=== PATIENT | male | born 1940 | race Caucasian/White ===

== ENCOUNTER → 2017-11-14 | Outpatient (CLI) | payer MEDICARE ==
--- NOTE | 2017-11-14 12:58 | KCIC ---
CT chest without contrast 11/14/2017 CLINICAL INDICATION: COPD with acute exacerbation. COMPARISON: CT chest 08/20/2012. TECHNIQUE: Multiple CT images of the chest were performed without contrast. *One or more of the following individualized dose reduction techniques were utilized for this examination: 1. Automated exposure control. 2. Adjustment of the mA and/or kV according to patient size. 3. Use of iterative reconstruction technique. FINDINGS: Heart size is normal without significant pericardial effusion. Coronary artery calcifications are noted. Prior endovascular repair of the aortic valve. Thoracic aorta is normal in caliber with mild scattered calcified atheromatous disease. No axillary, mediastinal or obvious hilar lymphadenopathy, though evaluation is somewhat limited due to lack of intravenous contrast. There are calcified mediastinal and hilar granulomas. 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 The central airways are patent. No pleural effusion or pneumothorax. There is mosaic attenuation throughout the lungs. There are 2 areas of subpleural groundglass opacity with thick peripheral surrounding consolidation in the right middle lobe measuring 3.5 x 2.7 cm series 3/image 105 and 1.7 x 1.0 cm series 2/image 131. There are anterior flowing osteophytes throughout the thoracic spine compatible with DISH. There are no destructive osseous lesions. Limited images of the upper abdomen: Grossly unremarkable apart from severe fatty atrophy of the pancreas. IMPRESSION: 1. Two areas of right middle lobe subpleural consolidation with central groundglass opacity. Differential considerations include cryptogenic organizing pneumonia, infectious etiologies including fungal, granulomatosis with polyangiitis, and possibly pulmonary infarction from an occult pulmonary embolism. Malignancy cannot be definitively excluded. Follow-up CT chest is recommended. 2. Mosaic attenuation, most commonly seen with small airways disease. 3. Coronary artery calcifications. Electronically signed by: Lewis Muse MD (11/14/2017 12:54 PM) [id number]
== END | disposition home or self-care (01) ==
LOC: KCIC CT 11:36
PROVIDERS: ATTEND Family Medicine
DX: J44.1 Chronic obstructive pulmonary disease with (acute) exacerbation (principal); I25.10 Atherosclerotic heart disease of native coronary artery without angina pectoris; J84.116 Cryptogenic organizing pneumonia; L92.8 Other granulomatous disorders of the skin and subcutaneous tissue
CPT/HCPCS: 71250

== ENCOUNTER → 2018-01-22 | Outpatient (CLI) | payer MEDICARE, OTHER | END | disposition home or self-care (01) | LOC: KCIC CT 09:56 | DX: J18.1 Lobar pneumonia, unspecified organism (principal); R91.1 Solitary pulmonary nodule | CPT/HCPCS: 71250 ==

== ENCOUNTER 2018-04-01 23:57 | Inpatient (IN) | payer MEDICARE, OTHER ==
[2018-04-02] MEDS: IPRATRPIUM/ALBUTEROL 0.5/2.5MG 3 ML NEBU. NEB ×8 (00:18→19:33)
[2018-04-02 00:32] LABS: BASE EXCESS ABG 4 mmol/L (-3-3); HCO3 ABG 29 mmol/L (21-28); PCO2 ABG 42 mmHg (35-46); PH ABG 7.45 (7.35-7.45); PO2 ABG 61 mmHg (65-108); SAT O2 ABG 92 % (92-99)
[2018-04-02 00:41] LABS: BASO # 0.1 x10^3/uL (0.0-0.2); BASO % 1 % (0-3); EOS # 0.1 x10^3/uL (0.0-0.7); EOS % 1 % (0-3); HEMATOCRIT 44.6 % (39.0-53.0); HEMOGLOBIN 15.2 g/dL (13.0-17.5); LYMPH # 0.7 x10^3/uL (1.0-4.8); LYMPH % 4 % (24-48); MEAN CORPUSCULAR HEMOGLOBIN 30 pg (25-35); MEAN CORPUSCULAR HGB CONC 34 g/dL (31-37); MEAN CORPUSCULAR VOLUME 88 fL (79-100); MONO # 0.8 x10^3/uL (0.0-1.1); MONO % 5 % (0-9); NEUT # 14.3 x10^3uL (1.8-7.7); NEUT % 90 % (31-73); PLATELET COUNT 149 x10^3/uL (140-400); RED BLOOD COUNT 5.06 x10^6/uL (4.30-5.70); RED CELL DISTRIBUTION WIDTH 13.5 % (11.5-14.5)
[2018-04-02 00:43] LABS: ADD MAN DIFF? YES
[2018-04-02 00:56] LABS: INR 1.1 (0.8-1.1); PROTHROMBIN TIME PATIENT 13.9 SEC (11.7-14.0)
[2018-04-02 00:57] LABS: ETHANOL < 10 mg/dL (0-10)
[2018-04-02 00:58] LABS: ANION GAP 11 (6-14); BLOOD UREA NITROGEN 37 mg/dL (8-26); BUN/CREATININE RATIO 19 (6-20); CALCIUM 8.5 mg/dL (8.5-10.1); CARBON DIOXIDE 28 mmol/L (21-32); CHLORIDE 99 mmol/L (98-107); GFR 32.6; GLUCOSE 253 mg/dL (70-99); POTASSIUM 3.8 mmol/L (3.5-5.1); SODIUM 138 mmol/L (136-145)
[2018-04-02 01:05] LABS: LACTIC ACID 3.3 mmol/L (0.4-2.0)
[2018-04-02 01:06] LABS: TROPONINI 0.023 ng/mL (0.000-0.055)
[2018-04-02 01:08] LABS: NT-PRO BNP 272 pg/mL (0-449)
[2018-04-02 01:11] LABS: ALBUMIN/GLOBULIN RATIO 0.6 (1.0-1.7); ALK PHOS 69 U/L (46-116); ALT (SGPT) 14 U/L (16-63); AST (SGOT) 17 U/L (15-37); TOTAL BILIRUBIN 0.6 mg/dL (0.2-1.0); TOTAL PROTEIN 7.8 g/dL (6.4-8.2)
[2018-04-02 01:21] LABS: % BANDS 4 % (0-9); % EOS 1 % (0-5); % LYMPHS 7 % (24-48); % MONOS 4 % (0-10); % SEGS 84 % (35-66); PLT ESTIMATE ADEQUATE (ADEQUATE)
[2018-04-02 01:40] LABS: PROCALCITONIN < 0.10 ng/mL (0.00-0.10)
[2018-04-02 02:18] LABS: BILIRUBIN,URINE NEGATIVE (NEG); CLARITY,URINE CLEAR; COLOR,URINE YELLOW; GLUCOSE,URINE 100 mg/dL (NEG); NITRITE,URINE NEGATIVE (NEG); PH,URINE 5.5; PROTEIN,URINE NEGATIVE (NEG-TRACE)
[2018-04-02 02:24] LABS: BACTERIA,URINE 0 /HPF (0-FEW); RBC,URINE 0 /HPF (0-2); SQUAMOUS EPITHELIAL CELL,UR FEW /LPF; WBC,URINE RARE /HPF (0-4)
[2018-04-02] MEDS: IV NORMAL SALINE 1000ML BAG 1,000 ML IV ×6 (02:45→22:31)
[2018-04-02 07:32] LABS: LACTIC ACID 2.9 mmol/L (0.4-2.0)
[2018-04-02 08:45] LABS: BASE EXCESS COOX 4 mmol/L (-3-3); HCO3 COOX 29 mmol/L (21-28); METHEMOGLOBIN 0.2 % (0.0-1.9); OXYHEMOGLOBIN 95.3 %; PCO2 COOX 44 mmHg (35-46); PH COOX 7.44 (7.35-7.45); PO2 COOX 88 mmHg (65-108); SAT O2 COOX 97 % (92-99); TOTAL HEMOGLOBIN 14.4 g/dL
[2018-04-02 08:48] LABS: FIO2 COOX 40
[2018-04-02] MEDS ORDERED: ONDANSETRON PF 4 MG/2 ML VIAL. IV (10:30)
[2018-04-02] MEDS ORDERED: hydrALAZINE 20 MG/ML VIAL. IVP (10:30)
[2018-04-02] MEDS ORDERED: ACETAMINOPHEN 325 MG TABLET. PO (10:30)
[2018-04-02] MEDS: AZITHROMYCIN 500 MG in IV NORMAL SALINE 250ML 250 ML IV (12:28)
[2018-04-02] MEDS: cefTRIAXone IV Push 1 GM VIAL. IVP (12:29)
[2018-04-02] MEDS: LACTOBACILLUS RHAMNOSUS GG 1 CAPSULE. PO ×2 (12:29→21:36)
[2018-04-02 14:20] LABS: MRSA BY PCR Negative (Negative)
[2018-04-02 20:52] LABS: POC GLUCOSE 206 mg/dL (70-99)
[2018-04-02] MEDS: HEPARIN PF for SUB-Q USE 5,000 UNIT/0.5 ML VIAL. SQ (21:40)
[2018-04-02 22:50] LABS: POC GLUCOSE 197 mg/dL (70-99)
[2018-04-03] MEDS: traMADol 50 MG TABLET PO ×2 (01:31→22:16)
[2018-04-03 05:13] LABS: ADD MAN DIFF? NO
[2018-04-03 05:26] LABS: BASO # 0.1 x10^3/uL (0.0-0.2); BASO % 1 % (0-3); EOS # 0.1 x10^3/uL (0.0-0.7); EOS % 1 % (0-3); HEMATOCRIT 41.8 % (39.0-53.0); HEMOGLOBIN 14.3 g/dL (13.0-17.5); LYMPH # 1.9 x10^3/uL (1.0-4.8); LYMPH % 9 % (24-48); MEAN CORPUSCULAR HEMOGLOBIN 30 pg (25-35); MEAN CORPUSCULAR HGB CONC 34 g/dL (31-37); MEAN CORPUSCULAR VOLUME 88 fL (79-100); MONO # 1.2 x10^3/uL (0.0-1.1); MONO % 6 % (0-9); NEUT # 17.9 x10^3uL (1.8-7.7); NEUT % 85 % (31-73); PLATELET COUNT 105 x10^3/uL (140-400); RED BLOOD COUNT 4.76 x10^6/uL (4.30-5.70); RED CELL DISTRIBUTION WIDTH 13.8 % (11.5-14.5); WHITE BLOOD COUNT 21.2 x10^3/uL (4.0-11.0)
[2018-04-03] MEDS: HEPARIN PF for SUB-Q USE 5,000 UNIT/0.5 ML VIAL. SQ ×3 (05:54→21:55)
[2018-04-03 06:01] LABS: ANION GAP 10 (6-14); BLOOD UREA NITROGEN 28 mg/dL (8-26); CALCIUM 8.5 mg/dL (8.5-10.1); CARBON DIOXIDE 28 mmol/L (21-32); CHLORIDE 102 mmol/L (98-107); CREATININE 1.4 mg/dL (0.7-1.3); GFR 49.3; GLUCOSE 154 mg/dL (70-99); POTASSIUM 3.4 mmol/L (3.5-5.1); SODIUM 140 mmol/L (136-145)
[2018-04-03] MEDS: IPRATRPIUM/ALBUTEROL 0.5/2.5MG 3 ML NEBU. NEB ×4 (07:48→19:09)
[2018-04-03] MEDS: LACTOBACILLUS RHAMNOSUS GG 1 CAPSULE. PO ×2 (09:21→21:54)
[2018-04-03] MEDS: MORPHINE SULFATE 4 MG/ML DISP.SYRIN. IV (10:15)
[2018-04-03] MEDS: AZITHROMYCIN 500 MG in IV NORMAL SALINE 250ML 250 ML IV (11:00)
[2018-04-03 12:10] LABS: MAGNESIUM 2.2 mg/dL (1.8-2.4)
[2018-04-03] MEDS: cefTRIAXone IV Push 1 GM VIAL. IVP (12:19)
[2018-04-03 12:20] LABS: THYROID STIM HORMONE (TSH) 2.019 uIU/mL (0.358-3.74)
[2018-04-03] MEDS: AZITHROMYCIN 500 MG in IV DEXTROSE 5 %-0.2 % NACL 250 ML IV (12:20)
[2018-04-03] MEDS ORDERED: hydrALAZINE 20 MG/ML VIAL. IVP (14:15)
[2018-04-03] MEDS: METOPROLOL TART IMMED RELEASE 25 MG TABLET. PO ×2 (15:49→21:00)
[2018-04-03] MEDS: ASPIRIN ENTERIC COATED 81 MG TABLET.DR. PO (15:49)
[2018-04-03] MEDS: POTASSIUM CHLORIDE 20 MEQ TABLET.ER. PO (15:49)
[2018-04-03] MEDS: amLODIPine BESYLATE 10 MG TABLET PO (15:50)
[2018-04-03 18:19] LABS: POC GLUCOSE 191 mg/dL (70-99)
[2018-04-04 04:45] LABS: POC GLUCOSE 212 mg/dL (70-99)
[2018-04-04 05:06] LABS: ADD MAN DIFF? NO
[2018-04-04 05:19] LABS: BASO % 0 % (0-3); EOS % 0 % (0-3); HEMATOCRIT 40.3 % (39.0-53.0); HEMOGLOBIN 13.6 g/dL (13.0-17.5); LYMPH # 1.4 x10^3/uL (1.0-4.8); LYMPH % 11 % (24-48); MEAN CORPUSCULAR HEMOGLOBIN 30 pg (25-35); MEAN CORPUSCULAR HGB CONC 34 g/dL (31-37); MEAN CORPUSCULAR VOLUME 88 fL (79-100); MONO # 0.8 x10^3/uL (0.0-1.1); MONO % 6 % (0-9); NEUT # 10.4 x10^3uL (1.8-7.7); NEUT % 82 % (31-73); PLATELET COUNT 116 x10^3/uL (140-400); RED BLOOD COUNT 4.59 x10^6/uL (4.30-5.70); RED CELL DISTRIBUTION WIDTH 13.6 % (11.5-14.5); WHITE BLOOD COUNT 12.7 x10^3/uL (4.0-11.0)
[2018-04-04] MEDS: HEPARIN PF for SUB-Q USE 5,000 UNIT/0.5 ML VIAL. SQ ×3 (05:39→20:41)
[2018-04-04 05:46] LABS: ANION GAP 8 (6-14); BLOOD UREA NITROGEN 21 mg/dL (8-26); CALCIUM 8.5 mg/dL (8.5-10.1); CARBON DIOXIDE 29 mmol/L (21-32); CHLORIDE 102 mmol/L (98-107); CREATININE 1.2 mg/dL (0.7-1.3); GFR 58.9; GLUCOSE 136 mg/dL (70-99); POTASSIUM 3.6 mmol/L (3.5-5.1); SODIUM 139 mmol/L (136-145)
[2018-04-04] MEDS: IPRATRPIUM/ALBUTEROL 0.5/2.5MG 3 ML NEBU. NEB ×4 (07:05→19:30)
[2018-04-04 08:03] LABS: POC GLUCOSE 150 mg/dL (70-99)
[2018-04-04] MEDS: LACTOBACILLUS RHAMNOSUS GG 1 CAPSULE. PO ×2 (08:14→20:21)
[2018-04-04] MEDS: DOCUSATE SODIUM 100 MG CAPSULE. PO (08:14)
[2018-04-04] MEDS: METOPROLOL TART IMMED RELEASE 25 MG TABLET. PO ×2 (08:15→20:22)
[2018-04-04] MEDS: traMADol 50 MG TABLET PO ×2 (08:15→20:41)
[2018-04-04] MEDS: ASPIRIN ENTERIC COATED 81 MG TABLET.DR. PO (08:15)
[2018-04-04] MEDS: amLODIPine BESYLATE 10 MG TABLET PO (08:15)
[2018-04-04] MEDS: cefTRIAXone IV Push 1 GM VIAL. IVP (11:44)
[2018-04-04 11:52] LABS: POC GLUCOSE 153 mg/dL (70-99)
[2018-04-04 16:32] LABS: POC GLUCOSE 156 mg/dL (70-99)
[2018-04-04] MEDS: ALBUTEROL SULFATE 2.5 MG/3 ML NEBU. NEB (18:00)
[2018-04-04 21:11] LABS: POC GLUCOSE 148 mg/dL (70-99)
[2018-04-04] MEDS: APIXABAN 5 MG TABLET. PO ×2 (22:41→22:43)
[2018-04-04 23:15] LABS: LEGIONELLA AG UR Negative (Negative)
[2018-04-05] MEDS: ANTI-COAG MONITOR BY PHARMACY. MC (02:39)
[2018-04-05] MEDS: ALBUTEROL SULFATE 2.5 MG/3 ML NEBU. NEB (02:56)
[2018-04-05] MEDS: traMADol 50 MG TABLET PO (06:00)
[2018-04-05] MEDS: IPRATRPIUM/ALBUTEROL 0.5/2.5MG 3 ML NEBU. NEB ×4 (06:59→19:54)
[2018-04-05 08:13] LABS: POC GLUCOSE 133 mg/dL (70-99)
[2018-04-05] MEDS: LACTOBACILLUS RHAMNOSUS GG 1 CAPSULE. PO ×2 (08:46→20:53)
[2018-04-05] MEDS: APIXABAN 5 MG TABLET. PO ×2 (08:47→20:52)
[2018-04-05] MEDS: METOPROLOL TART IMMED RELEASE 25 MG TABLET. PO ×2 (08:47→20:55)
[2018-04-05] MEDS: amLODIPine BESYLATE 10 MG TABLET PO (08:47)
[2018-04-05] MEDS: ASPIRIN ENTERIC COATED 81 MG TABLET.DR. PO (08:47)
[2018-04-05] MEDS ORDERED: PROMETH/CODEINE 6.25/10MG 5 ML SYRUP. PO (09:30)
[2018-04-05 09:36] LABS: ADD MAN DIFF? NO
[2018-04-05 09:48] LABS: BASO % 0 % (0-3); EOS # 0.1 x10^3/uL (0.0-0.7); EOS % 1 % (0-3); HEMOGLOBIN 14.2 g/dL (13.0-17.5); LYMPH # 1.3 x10^3/uL (1.0-4.8); LYMPH % 13 % (24-48); MEAN CORPUSCULAR HEMOGLOBIN 30 pg (25-35); MEAN CORPUSCULAR HGB CONC 34 g/dL (31-37); MEAN CORPUSCULAR VOLUME 88 fL (79-100); MONO # 0.7 x10^3/uL (0.0-1.1); MONO % 8 % (0-9); NEUT # 7.6 x10^3uL (1.8-7.7); NEUT % 79 % (31-73); PLATELET COUNT 124 x10^3/uL (140-400); RED BLOOD COUNT 4.75 x10^6/uL (4.30-5.70); RED CELL DISTRIBUTION WIDTH 13.6 % (11.5-14.5); WHITE BLOOD COUNT 9.6 x10^3/uL (4.0-11.0)
[2018-04-05 10:01] LABS: ANION GAP 8 (6-14); BLOOD UREA NITROGEN 19 mg/dL (8-26); CARBON DIOXIDE 29 mmol/L (21-32); CHLORIDE 101 mmol/L (98-107); CREATININE 1.2 mg/dL (0.7-1.3); GFR 58.9; GLUCOSE 149 mg/dL (70-99); POTASSIUM 3.8 mmol/L (3.5-5.1); SODIUM 138 mmol/L (136-145)
[2018-04-05] MEDS ORDERED: CONTRAST GIVEN MC (10:15)
[2018-04-05 11:42] LABS: POC GLUCOSE 145 mg/dL (70-99)
[2018-04-05] MEDS: IOHEXOL 300 MG/ML 100ML VIAL. IV (11:50)
[2018-04-05] MEDS: cefTRIAXone IV Push 1 GM VIAL. IVP (12:22)
[2018-04-05] MEDS: AZITHROMYCIN 500 MG in IV DEXTROSE 5 %-0.2 % NACL 250 ML IV (12:24)
[2018-04-05] MEDS: oxyCODONE/APAP 5/325 1 TAB TABLET PO ×2 (12:47→19:27)
[2018-04-05] MEDS: FUROSEMIDE 40 MG/4 ML VIAL. IVP (15:21)
[2018-04-05 16:20] LABS: SPECIMEN SOURCE Urine (.); STREP PNEUMO ANTIGEN Negative (Negative)
[2018-04-05 16:48] LABS: POC GLUCOSE 159 mg/dL (70-99)
[2018-04-05 20:47] LABS: POC GLUCOSE 156 mg/dL (70-99)
[2018-04-06] MEDS: traMADol 50 MG TABLET PO (00:35)
[2018-04-06] MEDS: IPRATRPIUM/ALBUTEROL 0.5/2.5MG 3 ML NEBU. NEB ×2 (07:50→12:00)
[2018-04-06 08:01] LABS: POC GLUCOSE 139 mg/dL (70-99)
[2018-04-06] MEDS: ANTI-COAG MONITOR BY PHARMACY. MC (08:04)
[2018-04-06] MEDS: ASPIRIN ENTERIC COATED 81 MG TABLET.DR. PO (08:10)
[2018-04-06] MEDS: METOPROLOL TART IMMED RELEASE 25 MG TABLET. PO (08:11)
[2018-04-06] MEDS: APIXABAN 5 MG TABLET. PO (08:11)
[2018-04-06] MEDS: amLODIPine BESYLATE 10 MG TABLET PO (08:11)
[2018-04-06] MEDS: LACTOBACILLUS RHAMNOSUS GG 1 CAPSULE. PO (08:12)
[2018-04-11] MEDS ORDERED: APIXABAN 5 MG TABLET. PO (21:00)
== END 2018-04-06 10:30 | disposition home health service (06) | DRG 871 ==
LOC: 5 NORTH 04-03 16:23 → ER 23:57 → 1 WEST ICU 04-02 02:58
PROC: 5A09357 Assistance with Respiratory Ventilation, Less than 24 Consecutive Hours, Continuous Positive Airway Pressure (ICD-10-PCS; principal; 2018-04-02)
PROC: 5A09357 Assistance with Respiratory Ventilation, Less than 24 Consecutive Hours, Continuous Positive Airway Pressure (ICD-10-PCS; 2018-04-03)
PROC: 5A09357 Assistance with Respiratory Ventilation, Less than 24 Consecutive Hours, Continuous Positive Airway Pressure (ICD-10-PCS; 2018-04-04)
PROC: 5A09357 Assistance with Respiratory Ventilation, Less than 24 Consecutive Hours, Continuous Positive Airway Pressure (ICD-10-PCS; 2018-04-05)
DX: A41.9 Sepsis, unspecified organism (principal); J18.9 Pneumonia, unspecified organism; N17.0 Acute kidney failure with tubular necrosis; J96.21 Acute and chronic respiratory failure with hypoxia; I50.43 Acute on chronic combined systolic (congestive) and diastolic (congestive) heart failure; I82.412 Acute embolism and thrombosis of left femoral vein; E11.42 Type 2 diabetes mellitus with diabetic polyneuropathy; I11.0 Hypertensive heart disease with heart failure; J44.0 Chronic obstructive pulmonary disease with (acute) lower respiratory infection; Z68.43 Body mass index [BMI] 50.0-59.9, adult; J44.1 Chronic obstructive pulmonary disease with (acute) exacerbation; J98.11 Atelectasis; W18.39XA Other fall on same level, initial encounter; I44.7 Left bundle-branch block, unspecified; M19.90 Unspecified osteoarthritis, unspecified site; E66.01 Morbid (severe) obesity due to excess calories; K21.9 Gastro-esophageal reflux disease without esophagitis; Z96.652 Presence of left artificial knee joint; I87.8 Other specified disorders of veins; I44.0 Atrioventricular block, first degree; M79.674 Pain in right toe(s); G47.33 Obstructive sleep apnea (adult) (pediatric); E78.5 Hyperlipidemia, unspecified; E78.00 Pure hypercholesterolemia, unspecified; I48.91 Unspecified atrial fibrillation; Z83.3 Family history of diabetes mellitus; Z87.891 Personal history of nicotine dependence; Z95.2 Presence of prosthetic heart valve; Z79.899 Other long term (current) drug therapy; Y93.89 Activity, other specified; Y92.091 Bathroom in other non-institutional residence as the place of occurrence of the external cause; Y99.8 Other external cause status
CPT/HCPCS: 36415; 36600; 71045; 71275; 73620; 78582; 80048; 80053; 81001; 82805; 82962; 83605; 83735; 83880; 84145; 84443; 84484; 85007; 85025; 85610; 87040; 87449; 87641; 93005; 93306; 93970; 94618; 94640; 94660; 96365; 96366; 96374; 97116-GP; 97162-GP; 97166-GO; 97530-GO; 99285; 99285-25; A9540; A9558; G0480; J0456; J0696; J1940; J1956; J2270; J7030; J7050; J7613; J7620; Q9967